=== PATIENT | female | born 1950 | race Caucasian/White ===

== ENCOUNTER 2019-03-29 07:39 | Day surgery (SDC) | payer MEDICARE, OTHER ==
[2019-03-29] MEDS ORDERED: hydrALAzine 20 MG INJ (09:33)
[2019-03-29] MEDS ORDERED: LABETALOL HCL 20MG INJ (09:33)
[2019-03-29] MEDS ORDERED: PROPOFOL 20 ML (09:33)
[2019-03-29] MEDS ORDERED: EPHEDrine 25 MG/5 ML SYG IV (10:00)
[2019-03-29] MEDS ORDERED: hydrALAzine 20 MG INJ IV (10:00)
[2019-03-29] MEDS ORDERED: ONDANSETRON 4 MG INJ IV (10:00)
[2019-03-29] MEDS ORDERED: LABETALOL HCL 20MG INJ IV (10:00)
== END 2019-03-29 14:06 | disposition home or self-care (01) ==
LOC: GIL 07:39
DX: K92.2 Gastrointestinal hemorrhage, unspecified (principal); K57.30 Diverticulosis of large intestine without perforation or abscess without bleeding; I10 Essential (primary) hypertension; E78.5 Hyperlipidemia, unspecified; E11.9 Type 2 diabetes mellitus without complications; Z79.84 Long term (current) use of oral hypoglycemic drugs
CPT/HCPCS: 43239; 82962; 88305; 88312